=== PATIENT | female | born 1995 | race Caucasian/White ===

== ENCOUNTER 2019-07-13 18:48 | Observation (INO) | payer BC ==
[2019-07-13] MEDS ORDERED: BUPIVACAINE MPF 0.25% 30 ML VIAL. ONE (18:59)
[2019-07-13] MEDS ORDERED: ROCURONIUM 50 MG/5 ML VIAL. ONE (19:47)
[2019-07-13] MEDS ORDERED: SUCCINYLCHOLINE 200 MG/10 ML VIAL. ONE (19:47)
[2019-07-13] MEDS ORDERED: NEOSTIGMINE METHYLSULFATE 5 MG/5 ML SYRINGE. ONE (19:47)
[2019-07-13] MEDS ORDERED: fentaNYL PF VIAL 100 MCG/2 ML VIAL ONE ×2 (19:47→20:47)
[2019-07-13] MEDS ORDERED: PROPOFOL 20 ML IV ONE ×2 (19:48→19:49)
[2019-07-13] MEDS ORDERED: ONDANSETRON PF 4 MG/2 ML VIAL. ONE ×2 (19:48→19:49)
[2019-07-13] MEDS ORDERED: DEXAMETHASONE SOD PHOS 4 MG/ML VIAL ONE ×2 (19:48→19:49)
[2019-07-13] MEDS ORDERED: KETOROLAC 30 MG/ML INJ FOR OR. INJ ONE ×2 (19:48→19:49)
[2019-07-13] MEDS ORDERED: MIDAZOLAM HCL/PF 2 MG/2 ML VIAL. ONE (19:48)
[2019-07-13] MEDS ORDERED: LIDOCAINE 2% PF 5 ML VIAL. ONE ×2 (19:48→19:49)
[2019-07-13] MEDS ORDERED: GLYCOPYRROLATE 1 MG/5 ML VIAL. ONE (19:48)
--- NOTE | 2019-07-13 20:42 | PDOC1 ---
History and Physical Date of Admission Date of Admission DATE: 07/13/19 TIME: 20:37 Identification/Chief Complaint Chief Complaint abdominal pain Source Source: Chart review, Patient History of Present Illness History of Present Illness 24 y/o G2 A1 @ 8 wks gestation by LMP presented to [facility] emergency with severe abdominal pain. She was diagnosed with ruptured ectopic and acute abdomen. She was then transferred to [place], evaluated and counseled on LPSC removal of ectopic . Past Surgical History Past Surgical History: Other (ankle) Current Medications Current Medications Current Medications Succinylcholine Chloride (Anectine) 200 mg STK-MED ONCE .ROUTE ; Start 07/13/19 at 19:47; Stop 07/13/19 at 19:47; Status DC Rocuronium [place] (Zemuron) 50 mg STK-MED ONCE .ROUTE ; Start 07/13/19 at 19:47; Stop 07/13/19 at 19:47; Status DC Fentanyl Citrate (Fentanyl 2ml Vial) 100 mcg STK-MED ONCE .ROUTE ; Start 07/13/19 at 19:47; Stop 07/13/19 at 19:47; Status DC Neostigmine Methylsulfate (Neostigmine Methylsulfate) 5 mg STK-MED ONCE .ROUTE ; Start 07/13/19 at 19:47; Stop 07/13/19 at 19:48; Status DC Midazolam HCl (Versed) 2 mg STK-MED ONCE .ROUTE ; Start 07/13/19 at 19:48; Stop 07/13/19 at 19:48; Status DC Glycopyrrolate (Robinul) 1 mg STK-MED ONCE .ROUTE ; Start 07/13/19 at 19:48; Stop 07/13/19 at 19:48; Status DC Propofol 20 ml @ As Directed STK-MED ONCE IV ; Start 07/13/19 at 19:48; Stop 07/13/19 at 19:49; Status DC Ketorolac Tromethamine (Toradol For Or Only) 30 mg STK-MED ONCE INJ ; Start 07/13/19 at 19:48; Stop 07/13/19 at 19:49; Status DC Lidocaine HCl (Lidocaine Pf 2% Vial) 5 ml STK-MED ONCE .ROUTE ; Start 07/13/19 at 19:48; Stop 07/13/19 at 19:49; Status DC Ondansetron HCl (Zofran) 4 mg STK-MED ONCE .ROUTE ; Start 07/13/19 at 19:48; Stop 07/13/19 at 19:49; Status DC Dexamethasone Sodium Phosphate (Decadron) 4 mg STK-MED ONCE .ROUTE ; Start 07/13/19 at 19:48; Stop 07/13/19 at 19:49; Status DC Dexamethasone Sodium Phosphate (Decadron) 4 mg STK-MED ONCE .ROUTE ; Start 07/13/19 at 19:49; Stop 07/13/19 at 19:49; Status DC Ondansetron HCl (Zofran) 4 mg STK-MED ONCE .ROUTE ; Start 07/13/19 at 19:49; Stop 07/13/19 at 19:49; Status DC Lidocaine HCl (Lidocaine Pf 2% Vial) 5 ml STK-MED ONCE .ROUTE ; Start 07/13/19 at 19:49; Stop 07/13/19 at 19:49; Status DC Propofol 20 ml @ As Directed STK-MED ONCE IV ; Start 07/13/19 at 19:49; Stop 07/13/19 at 19:49; Status DC Ketorolac Tromethamine (Toradol For Or Only) 30 mg STK-MED ONCE INJ ; Start 07/13/19 at 19:49; Stop 07/13/19 at 19:49; Status DC Bupivacaine HCl (Sensorcaine Mpf 0.25%) 30 ml STK-MED ONCE .ROUTE Last administered on 07/13/19at 20:17; Start 07/13/19 at 18:59; Stop 07/13/19 at 19:59; Status DC Allergies Allergies: Coded Allergies: Sulfa (Sulfonamide Antibiotics) (Verified Allergy, Severe, 07/13/19) ROS General: YES: Fatigue, Malaise; No: Chills, Night Sweats, Appetite, Other PSYCHOLOGICAL ROS: YES: Anxiety; No: Behavioral Disorder, Concentration difficultie, Decreased libido, Depression, Disorientation, Hallucinations, Hostility, Irritablity, Memory difficulties, Mood Swings, Obsessive thoughts, Physical abuse, Sexual abuse, Sleep disturbances, Suicidal ideation, Other Eyes: No Blurry vision, No Decreased vision, No Double vision, No Dry eyes, No Excessive tearing, No Eye Pain, No Itchy Eyes, No Loss of vision, No Photophobia, No Scotomata, No Uses contacts, No Uses glasses, No Other HEENT: No: Heacaches, Visual Changes, Hearing change, Nasal congestion, Nasal discharge, Oral lesions, Sinus pain, Sore Throat, Epistaxis, Sneezing, Snoring, Tinnitus, Vertigo, Vocal changes, Other ALLERGY AND IMMUNOLOGY: No: Hives, Insect Bite Sensitivity, Itchy/Watery Eyes, Nasal Congestion, Post Nasal Drip, Seasonal Allergies, Other Hematological and Lymphatic: No: Bleeding Problems, Blood Clots, Blood Transfusions, Brusing, Night Sweats, Pallor, Swollen Lymph Nodes, Other ENDOCRINE: No: Breast Changes, Galactorrhea, Hair Pattern Changes, Hot Flashes, Malaise/lethargy, Mood Swings, Palpitations, Polydipsia/polyuria, Skin Changes, Temperature Intolerance, Unexpected Weight Changes, Other Breast: No New/Changing Breast Lumps, No Nipple changes, No Nipple discharge, No Other Respiratory: No: Cough, Hemoptysis, Orthopnea, Pleuritic Pain, Shortness of breath, SOB with excertion, Sputum Changes, Stridor, Tachypnea, Wheezing, Other Cardiovascular: No Chest Pain, No Palpitations, No Orthopnea, No Paroxysmal Noc. Dyspnea, No Edema, No Lt Headedness, No Other Gastrointestinal: Yes Nausea, Yes Abdominal Pain; No Vomiting, No Diarrhea, No Constipation, No Melena, No Hematochezia, No Other Skin: No Dry Skin, No Eczema, No Hair Changes, No Lumps, No Mole Changes, No Mo ttling, No Nail Changes, No Pruritus, No Rash, No Skin Lesion Changes, No Other, No Acne Physical Exam General: Alert, Cooperative, moderate distress HEENT: Atraumatic Heart: RRR Abdomen: Soft, No masses, Other (rebound tenderness) PELVIC: Examination not indicated Psych/Mental Status: Mental status NL VTE Prophylaxis Ordered VTE Prophylaxis Devices: No VTE Pharmacological Prophylaxi: No Assessment/Plan Assessment/Plan A: Ruptured ectopic P: Admit for surgical management in form of LPSC removal ectopic . DAREK LAUGHLIN Jr, MD Jul 13, 2019 20:42
--- NOTE | 2019-07-13 20:46 | PDOC ---
BRIEF OPERATIVE NOTE Date: Jul 13, 2019 Pre-Op Diagnosis Ruptured ectopic Post-Op Diagnosis Left Ruptured Ectopic Procedure Performed [facility] Left Salpingectomy Surgeon Dr. Quintero Anesthesia Type: General Blood Loss 5 ml; 600 ml blood clot in abdomen Specimens Obtained Left fallopian tube with ectopic Findings Left ruptured ectopic ; nml ovaries braxton, nml right fallopian tube; nml size uterus Complications none Operative Note see dictation DAREK QUINTERO Jr, MD Jul 13, 2019 20:46
[2019-07-13] MEDS ORDERED: IV RINGERS,LACTATED 1000ML 1,000 ML IV SCH (20:47)
[2019-07-13] MEDS: fentaNYL PF VIAL 100 MCG/2 ML VIAL IV PRN ×3 (20:51→21:28)
[2019-07-13] MEDS ORDERED: HYDROmorphone 2 MG/ML VIAL IV PRN (21:00)
[2019-07-13] MEDS ORDERED: 0.9 % SODIUM CHLORIDE 10 ML DISP.SYRIN. IV PRN (21:00)
[2019-07-13] MEDS ORDERED: MORPHINE SULFATE 2 MG/ML VIAL. IV PRN (21:00)
[2019-07-13] MEDS ORDERED: fentaNYL PF VIAL 100 MCG/2 ML VIAL IV PRN (21:00)
[2019-07-13] MEDS ORDERED: ONDANSETRON PF 4 MG/2 ML VIAL. IV PRN ×2 (21:00)
[2019-07-13] MEDS ORDERED: SIMETHICONE 80 MG TAB.CHEW PO PRN (21:00)
[2019-07-13] MEDS ORDERED: diphenhydrAMINE HCL 25 MG CAPSULE PO PRN (21:00)
[2019-07-13] MEDS ORDERED: CALCIUM CARBONATE 500 MG TAB.CHEW PO PRN (21:00)
[2019-07-13] MEDS ORDERED: diphenhydrAMINE 50 MG/ML VIAL IV PRN (21:00)
[2019-07-13] MEDS ORDERED: KETOROLAC 30 MG/ML VIAL. IV PRN (21:00)
[2019-07-13] MEDS ORDERED: DEXTROSE 50% 25 GM / 50ML DISP.SYRIN. IV PRN (21:00)
[2019-07-13] MEDS ORDERED: PROCHLORPERAZINE 10 MG/2 ML VIAL. IV PRN ×2 (21:00)
[2019-07-13] MEDS ORDERED: ZOLPIDEM 5 MG TABLET. PO PRN (21:00)
[2019-07-13 21:50] VITALS: BP 121/64
[2019-07-13 22:15] VITALS: BP 133/82
[2019-07-13] MEDS: oxyCODONE/APAP 5/325 1 TAB TABLET PO PRN (22:20)
[2019-07-13] MEDS: GABAPENTIN 300 MG CAPSULE. PO SCH (22:21)
[2019-07-13 22:30] VITALS: BP 124/68
[2019-07-13 22:45] VITALS: BP 125/74
--- NOTE | 2019-07-13 23:33 | OP ---
DATE OF SURGERY: 07/13/2019 PREOPERATIVE DIAGNOSIS: Ruptured ectopic . POSTOPERATIVE DIAGNOSIS: Left ruptured ectopic . PROCEDURE: Laparoscopic left salpingectomy. SURGEON: Coy Quintero MD ANESTHESIA: GETA. ESTIMATED BLOOD LOSS: 5 mL. There was 600 mL of blood clot in the abdomen. COMPLICATIONS: None. FINDINGS: Ruptured ectopic on the left side, normal ovaries bilaterally, normal right fallopian tube, normal size uterus. SUMMARY: A 24-year-old 2, A1 at about 8 weeks' gestation who presented to Emergency Department with severe abdominal pain. She was found to have a ruptured ectopic and was transferred from [facility] Emergency Room down to [place]. The patient was counseled on risks, benefits and expectations of laparoscopic salpingo-oophorectomy and voiced clear understanding to proceed. DESCRIPTION OF PROCEDURE: The patient was taken to surgery suite and placed in dorsal lithotomy position. She was prepped with Betadine solution for vaginal prep and ChloraPrep for abdominal prep. After adequate anesthesia, bivalve speculum was placed vaginally. Anterior lip of the cervix grasped with single tooth tenaculum. The uterine acorn manipulator was then placed. The bivalve speculum was removed. Attention was now placed on abdomen. Small transverse skin incision was made with the scalpel just below the umbilicus. The Veress needle was then placed through the infraumbilical incision site. The abdomen was allowed to insufflate up to 1-1/2 liters of CO2 gas. The Veress needle was then removed, 5 mm trocar was placed, the camera was positioned. There was a large amount of blood clot that was visualized. Two additional incisions were made in the left lower quadrant in which 5 mm and 11 mm trocars were placed. With the aid of graspers and suction vinyl hanger, most of the blood was irrigated and suctioned out. The right fallopian tube and ovary appeared normal. Left ovary appeared normal. Left fallopian tube was then isolated and removed with aid of the EnSeal device. The pedicle was then hemostatic. The ectopic was removed with the left fallopian tube using an Endobag. We then continued to suction and irrigate out the remaining blood clot in the abdomen. There was a small amount of normal saline that was left in posterior cul-de-sac. The trocars were then removed under direct visualization. The abdomen was allowed to deflate as much as possible along with mechanical manipulation. The 11 mm port site was closed at the fascial layer using 2-0 Vicryl suture in [id number] manner. The 3 skin incisions were closed at the skin level using 4-0 Vicryl suture in subcuticular manner. A 0.25% Marcaine was injected at each incision site. The uterine acorn manipulator and single tooth tenaculum were removed. The patient tolerated the procedure well and was taken to recovery room in stable condition. Sponge and needle count correct x 3. COY QUINTERO MD DR: ZULMA/jerome JOB#: [id number] / [id number]
[2019-07-14] MEDS: oxyCODONE/APAP 5/325 1 TAB TABLET PO PRN ×3 (00:09→12:21)
[2019-07-14 00:15] VITALS: BP 128/76
[2019-07-14 00:45] VITALS: BP 118/60
[2019-07-14 01:15] VITALS: BP 118/74
[2019-07-14 06:40] VITALS: BP 105/66
[2019-07-14] MEDS: GABAPENTIN 300 MG CAPSULE. PO SCH ×2 (06:45→12:21)
[2019-07-14 07:37] LABS: BASO % 0 % (0-3); EOS % 0 % (0-3); HEMATOCRIT 30.1 % (36.0-47.0); HEMOGLOBIN 10.3 g/dL (12.0-15.5); LYMPH # 0.7 x10^3/uL (1.0-4.8); LYMPH % 6 % (24-48); MEAN CORPUSCULAR HEMOGLOBIN 30 pg (25-35); MEAN CORPUSCULAR HGB CONC 34 g/dL (31-37); MEAN CORPUSCULAR VOLUME 88 fL (79-100); MONO # 0.8 x10^3/uL (0.0-1.1); MONO % 7 % (0-9); NEUT # 10.6 x10^3/uL (1.8-7.7); NEUT % 87 % (31-73); PLATELET COUNT 230 x10^3/uL (140-400); RED BLOOD COUNT 3.43 x10^6/uL (3.50-5.40); RED CELL DISTRIBUTION WIDTH 13.6 % (11.5-14.5); WHITE BLOOD COUNT 12.1 x10^3/uL (4.0-11.0)
[2019-07-14 10:05] LABS: % LYMPHS 8 % (24-48); % MONOS 2 % (0-10); % SEGS 90 % (35-66); PLT ESTIMATE ADEQUATE (ADEQUATE)
[2019-07-14 10:45] VITALS: BP 115/63
--- NOTE | 2019-07-14 12:20 | PDOC ---
SURGICAL PROGRESS NOTE Subjective Pt. feeling better. Results of surgery discussed with patient and family. Vital Signs Vital Signs Date Time Temp Pulse Resp B/P (MAP) Pulse Ox O2 Delivery O2 Flow Rate FiO2 07/14/19 10:45 98.4 75 20 115/63 (80) 96 Room Air 98.4 07/13/19 20:54 8.0 I&O Intake and Output 07/14/19 07:00 Intake Total 2010 ml Output Total 500 ml Balance 1510 ml Intake Oral 1060 ml IV Total 950 ml Output Estimated Blood Loss 500 ml # Voids 1 PATIENT HAS A MORALES: No General: Alert, Oriented X3, Cooperative HEENT: Atraumatic Lungs: Clear to auscultation Heart: Regular rate Abdomen: Soft, No tenderness, No masses Psych/Mental Status: Mental status NL Labs Laboratory Tests Test 07/14/19 07:15 White Blood Count 12.1 x10^3/uL (4.0-11.0) Red Blood Count 3.43 x10^6/uL (3.50-5.40) Hemoglobin 10.3 g/dL (12.0-15.5) Hematocrit 30.1 % (36.0-47.0) Mean Corpuscular Volume 88 fL (79-100) Mean Corpuscular Hemoglobin 30 pg (25-35) Mean Corpuscular Hemoglobin Concent 34 g/dL (31-37) Red Cell Distribution Width 13.6 % (11.5-14.5) Platelet Count 230 x10^3/uL (140-400) Neutrophils (%) (Auto) 87 % (31-73) Lymphocytes (%) (Auto) 6 % (24-48) Monocytes (%) (Auto) 7 % (0-9) Eosinophils (%) (Auto) 0 % (0-3) Basophils (%) (Auto) 0 % (0-3) Neutrophils # (Auto) 10.6 x10^3/uL (1.8-7.7) Lymphocytes # (Auto) 0.7 x10^3/uL (1.0-4.8) Monocytes # (Auto) 0.8 x10^3/uL (0.0-1.1) Eosinophils # (Auto) 0.0 x10^3/uL (0.0-0.7) Basophils # (Auto) 0.0 x10^3/uL (0.0-0.2) Segmented Neutrophils % 90 % (35-66) Lymphocytes % 8 % (24-48) Monocytes % 2 % (0-10) Platelet Estimate Adequate (ADEQUATE) Laboratory Tests Test 07/14/19 07:15 White Blood Count 12.1 x10^3/uL (4.0-11.0) Red Blood Count 3.43 x10^6/uL (3.50-5.40) Hemoglobin 10.3 g/dL (12.0-15.5) Hematocrit 30.1 % (36.0-47.0) Mean Corpuscular Volume 88 fL (79-100) Mean Corpuscular Hemoglobin 30 pg (25-35) Mean Corpuscular Hemoglobin Concent 34 g/dL (31-37) Red Cell Distribution Width 13.6 % (11.5-14.5) Platelet Count 230 x10^3/uL (140-400) Neutrophils (%) (Auto) 87 % (31-73) Lymphocytes (%) (Auto) 6 % (24-48) Monocytes (%) (Auto) 7 % (0-9) Eosinophils (%) (Auto) 0 % (0-3) Basophils (%) (Auto) 0 % (0-3) Neutrophils # (Auto) 10.6 x10^3/uL (1.8-7.7) Lymphocytes # (Auto) 0.7 x10^3/uL (1.0-4.8) Monocytes # (Auto) 0.8 x10^3/uL (0.0-1.1) Eosinophils # (Auto) 0.0 x10^3/uL (0.0-0.7) Basophils # (Auto) 0.0 x10^3/uL (0.0-0.2) Segmented Neutrophils % 90 % (35-66) Lymphocytes % 8 % (24-48) Monocytes % 2 % (0-10) Platelet Estimate Adequate (ADEQUATE) Assessment/Plan A: POD#1 s/p LPSC Left salpingectomy P: D/c home. DAREK LAUGHLIN Jr, MD Jul 14, 2019 12:20
[2019-07-14] MEDS ORDERED: OXYC1TAB15 PO (12:22)
--- NOTE | 2019-07-14 12:22 | DISCH ---
DISCHARGE INSTRUCTIONS Condition on Discharge Condition on Discharge: Stable Activity After Discharge Activity Instructions for Disc: Activity as tolerated Lifting Instructions after Dis: No heavy lifting Driving Instructions after Dis: Do not drive today Diet after Discharge Diet after Discharge: Regular Contacting the DRHeather after DC Call your doctor for: Concerns you may have Follow-Up Follow up with: Dr. Quintero in 1 week. DAREK QUINTERO Jr, MD Jul 14, 2019 12:22
--- NOTE | 2019-07-15 13:08 | PATHOLOGY ---
[facility] Accession Number: [id number] . 01 Material submitted: . fallopian tube - LEFT TUBE. Modifiers: left . 01 Clinical history: . Ectopic . 02 Diagnosis: Fallopian tube, laparoscopic left salpingectomy: - Ectopic tubal , ruptured. - Hematosalpinx. . (JPM:mml; 07/15/2019) [facility]/07/15/2019 . 02 Comment: Placental villous and tissue is focally identified within blood vessels adjacent to the fallopian tube. . (JPM:mml; 07/15/2019) . 02 Electronically signed: . Lior Douglas MD, Pathologist NPI- [id number] . 01 Gross description: . The specimen is received in formalin, labeled "Elizabeth Braden, left tube" and consists of a markedly dilated and fimbriated fallopian tube segment measuring 5.4 cm in length and ranging from 0.3-2.4 cm in diameter. The proximal aspect of the tube has a disruption with protruding spongy villous brown tissue (inked black). Sectioning reveals the dilated lumen contains a probable gestational sac and spongy villous brown tissue as well as clot. A benefits representative section is submitted in A1-A5. (SD; 07/14/2019) SYU/SYU . 02 Pathologist provided ICD-10: O00.90, N83.6 . 02 CPT . 940486 Specimen Comment: A courtesy copy of this report has been sent to Specimen Comment: [phone]. Specimen Comment: Report sent to Performed at: [address], [place], [place] [id number] MD Marco Antonio Jones MD Phone: [phone] Performed at: [address] [id number] MD Lior Douglas MD Phone: [phone]
== END 2019-07-14 13:30 | disposition home or self-care (01) ==
LOC: 3 NORTH 19:30
PROVIDERS: ADMIT Obstetrics & Gynecology; ATTEND Obstetrics & Gynecology
DX: O00.90 Unspecified ectopic pregnancy without intrauterine pregnancy (principal); Z3A.08 8 weeks gestation of pregnancy
CPT/HCPCS: 36415; 59151; 85007; 85025; 96374; A7015; G0378; G0379; J0330; J1100; J1885; J2001; J2250; J2704; J2710; J3010; J3490; J7030; Q0163; 88305; J2405

== ENCOUNTER 2020-08-08 09:21 | Emergency (ER) | payer BC ==
[~2020-08-08] VITALS: Ht 162.6 cm; Wt 54.5 kg
[~2020-08-08 09:21] MED LIST: OXYC1TAB15 PO
[2020-08-08 10:22] LABS: CREATININE 0.9 mg/dL (0.6-1.0); GFR 77.6; POTASSIUM 3.6 mmol/L (3.5-5.1)
[2020-08-08 10:26] LABS: BASO # 0.1 x10^3/uL (0.0-0.2); BASO % 1 % (0-3); EOS # 0.1 x10^3/uL (0.0-0.7); EOS % 1 % (0-3); HEMATOCRIT 39.9 % (36.0-47.0); HEMOGLOBIN 13.1 g/dL (12.0-15.5); LYMPH # 1.4 x10^3/uL (1.0-4.8); LYMPH % 14 % (24-48); MEAN CORPUSCULAR HEMOGLOBIN 27 pg (25-35); MEAN CORPUSCULAR HGB CONC 33 g/dL (31-37); MEAN CORPUSCULAR VOLUME 82 fL (79-100); MONO # 0.8 x10^3/uL (0.0-1.1); MONO % 8 % (0-9); NEUT # 7.9 x10^3/uL (1.8-7.7); NEUT % 76 % (31-73); PLATELET COUNT 260 x10^3/uL (140-400); RED BLOOD COUNT 4.84 x10^6/uL (3.50-5.40); RED CELL DISTRIBUTION WIDTH 15.9 % (11.5-14.5); WHITE BLOOD COUNT 10.4 x10^3/uL (4.0-11.0)
[2020-08-08 10:29] LABS: ALBUMIN 3.9 g/dL (3.4-5.0); ALBUMIN/GLOBULIN RATIO 1.1 (1.0-1.7); MAGNESIUM 1.8 mg/dL (1.8-2.4); TOTAL BILIRUBIN 0.7 mg/dL (0.2-1.0); TOTAL PROTEIN 7.3 g/dL (6.4-8.2)
--- NOTE | 2020-08-08 11:08 | PHYS DOC ---
Past Medical History Past Medical History: No Pertinent History Past Surgical History: Other Additional Past Surgical Histo: LT SALPINGECTOMY Smoking Status: Never Smoker Alcohol Use: None General Adult EDM: Chief Complaint: VAGINAL BLEEDING HPI: HPI: Patient is a 25 year old female who presented to ER today for evaluation of vaginal bleeding started this morning. Patient says she is about 4 weeks . Patient woke up this morning noted blood, now more than spotting. Patient denies passing any blood clot, denies any pelvic pain or any abdominal pain, no nausea vomiting, no fever. Patient has history of ruptured ectopic in July 13, 2019, she lost her left fallopian tube for that. She said at that time she was having severe pain, she was 8 weeks then. Again patient denies any pelvic pain today. Review of Systems: Review of Systems: Constitutional: Denies fever or chills. [] Eyes: Denies change in visual acuity. [] HENT: Denies nasal congestion or sore throat. [] Respiratory: Denies cough or shortness of breath. [] Cardiovascular: Denies chest pain or edema. [] GI: Denies abdominal pain, nausea, vomiting, bloody stools or diarrhea. [] : Denies dysuria. Positive for vaginal bleeding. Musculoskeletal: Denies back pain or joint pain. [] Integument: Denies rash. [] Neurologic: Denies headache, focal weakness or sensory changes. [] Endocrine: Denies polyuria or polydipsia. [] Lymphatic: Denies swollen glands. [] Psychiatric: Denies depression or anxiety. [] Heart Score: Risk Factors: Risk Factors: DM, Current or recent (<one month) smoker, HTN, HLP, family history of CAD, obesity. Risk Scores: Score 0 - 3: 2.5% MACE over next 6 weeks - Discharge Home Score 4 - 6: 20.3% MACE over next 6 weeks - Admit for Clinical Observation Score 7 - 10: 72.7% MACE over next 6 weeks - Early Invasive Strategies Allergies: Allergies: Allergies Coded Allergies Type Severity Reaction Last Updated Verified Sulfa (Sulfonamide Antibiotics) Allergy Severe 07/13/19 Yes Physical Exam: PE: Constitutional: Well developed, well nourished, no acute distress, non-toxic appearance. [] HENT: Normocephalic, atraumatic, bilateral external ears normal, oropharynx moist, no oral exudates, nose normal. [] Eyes: PERRLA, EOMI, conjunctiva normal, no discharge. [] Neck: Normal range of motion, no tenderness, supple, no stridor. [] Cardiovascular:Heart rate regular rhythm, no murmur [] Lungs & Thorax: Bilateral breath sounds clear to auscultation [] Abdomen: Bowel sounds normal, soft, no tenderness, no masses, no pulsatile masses. Pelvic exam: THERE IS DARK BLOOD IN VAGINAL VAULT, CERVIX IS CLOSED, NO ADNEXA TENDERNESS TO PALPATION. Skin: Warm, dry, no erythema, no rash. [] Back: No tenderness, no CVA tenderness. [] Extremities: No tenderness, no cyanosis, no clubbing, ROM intact, no edema. [] Neurologic: Alert and oriented X 3, normal motor function, normal sensory function, no focal deficits noted. [] Psychologic: Affect normal, judgement normal, mood normal. [] Current Patient Data: Labs: Laboratory Tests Test 08/08/20 09:55 08/08/20 10:05 White Blood Count 10.4 x10^3/uL (4.0-11.0) Red Blood Count 4.84 x10^6/uL (3.50-5.40) Hemoglobin 13.1 g/dL (12.0-15.5) Hematocrit 39.9 % (36.0-47.0) Mean Corpuscular Volume 82 fL (79-100) Mean Corpuscular Hemoglobin 27 pg (25-35) Mean Corpuscular Hemoglobin Concent 33 g/dL (31-37) Red Cell Distribution Width 15.9 % (11.5-14.5) H Platelet Count 260 x10^3/uL (140-400) Neutrophils (%) (Auto) 76 % (31-73) H Lymphocytes (%) (Auto) 14 % (24-48) L Monocytes (%) (Auto) 8 % (0-9) Eosinophils (%) (Auto) 1 % (0-3) Basophils (%) (Auto) 1 % (0-3) Neutrophils # (Auto) 7.9 x10^3/uL (1.8-7.7) H Lymphocytes # (Auto) 1.4 x10^3/uL (1.0-4.8) Monocytes # (Auto) 0.8 x10^3/uL (0.0-1.1) Eosinophils # (Auto) 0.1 x10^3/uL (0.0-0.7) Basophils # (Auto) 0.1 x10^3/uL (0.0-0.2) Maternal Serum HCG Beta Subunit 9 mIU/mL (0-5) H Sodium Level 139 mmol/L (136-145) Potassium Level 3.6 mmol/L (3.5-5.1) Chloride Level 105 mmol/L (98-107) Carbon Dioxide Level 22 mmol/L (21-32) Anion Gap 12 (6-14) Blood Urea Nitrogen 13 mg/dL (7-20) Creatinine 0.9 mg/dL (0.6-1.0) Estimated GFR (Cockcroft-Gault) 77.6 BUN/Creatinine Ratio 14 (6-20) Glucose Level 94 mg/dL (70-99) Calcium Level 9.0 mg/dL (8.5-10.1) Magnesium Level 1.8 mg/dL (1.8-2.4) Total Bilirubin 0.7 mg/dL (0.2-1.0) Aspartate Amino Transferase (AST) 15 U/L (15-37) Alanine Aminotransferase (ALT) 15 U/L (14-59) Alkaline Phosphatase 61 U/L (46-116) Total Protein 7.3 g/dL (6.4-8.2) Albumin 3.9 g/dL (3.4-5.0) Albumin/Globulin Ratio 1.1 (1.0-1.7) POC Urine HCG, Qualitative Borderline hcg level Laboratory Tests 08/08/20 09:55 Laboratory Tests 08/08/20 09:55 Vital Signs: Vital Signs Date Time Temp Pulse Resp B/P (MAP) Pulse Ox O2 Delivery O2 Flow Rate FiO2 08/08/20 09:34 98.9 65 16 132/73 (92) 99 Room Air 98.9 EKG: EKG: [] Radiology/Procedures: Radiology/Procedures: [][facility] [address] [place] [address] IMAGING REPORT Signed PATIENT: SAMSON RICHTERACCOUNT: [id number] : 1995 LOCATION: ER AGE: 25 SEX: F EXAM STATUS: REG ER ORD. PHYSICIAN: CHAGO BOWEN DO REASON: , VAGINAL BLEEDING PROCEDURE: OB TRANSVAG Obstetrical ultrasound 08/08/2020. Reason for exam: Early with vaginal bleeding. Transvaginal scanning was performed. This shows normal size uterus measuring 7.1 x 3.2 cm. The endometrial stripe is mildly thickened at 9 mm. No gestational sac is seen. There is a small amount of free fluid in the cul-de-sac. Both ovaries are shown and are normal in size. The right ovary contains an avascular region measuring about 1.7 cm probably representing corpus luteum. There is blood flow in the ovary. The left ovary appears normal and has internal blood flow. No adnexal mass is seen. IMPRESSION: No visible . Mild free fluid. Findings are nonspecific. Based on last menstrual period date, it may be too early to visualize a . Follow-up serial serum beta hCG and ultrasound may be useful. Electronically signed by: Coy Lundy Jr., MD (08/08/2020 11:46 AM) [facility] DICTATED and SIGNED BY: COY LUNDY Jr, MD DATE: 08/08/20 1146 Course & Med Decision Making: Course & Med Decision Making Pertinent Labs and Imaging studies reviewed. (See chart for details) Patient is a 25-year-old female who is , presented with vaginal bleeding, she had no abdominal pain, pelvic ultrasound was inconclusive. Her hCGis level only 9, unlikely to have ectopic because she has no pelvic pain, however she will need to follow-up with her [employer] doctor in 48 hours to have hCG level rechecked. Patient is amenable to plan of care Dragon Disclaimer: Dragon Disclaimer: This electronic medical record was generated, in whole or in part, using a voice recognition dictation system. Departure Departure Impression: Primary Impression: Threatened in first trimester Disposition: 01 HOME, SELF-CARE Condition: STABLE Referrals: NO PCP (PCP) COY LAUGHLIN Jr, MD please follow up with your [employer] doctor in 2 days for repeat HCG level. it is 9 today. Patient Instructions: Threatened Miscarriage Additional Instructions: Thank you for visiting our Emergency Department. We appreciate you trusting us with your care. If any additional problems come up don't hesitate to return to visit us. Please follow up with your primary care provider so they can plan additional care if needed and know about the problem that you had. If symptoms worsen come back to the Emergency Department. Any concerning symptoms that start such as chest pain, shortness of air, weakness or numbness on one side of the body, running high fevers or any other concerning symptoms return to the ER. Justicifation of Admission Dx: Justifications for Admission: Justification of Admission Dx: N/A CHAGO BOWEN DO Aug 08, 2020 11:07
[2020-08-08 11:09] LABS: PREG TEST PT QUAL POSITIVE (NEG)
[2020-08-08 11:31] LABS: BILIRUBIN,URINE NEGATIVE (NEG); CLARITY,URINE CLEAR; COLOR,URINE YELLOW; NITRITE,URINE NEGATIVE (NEG); PH,URINE 5.5 (<5.0-8.0); PROTEIN,URINE NEGATIVE (NEG-TRACE); UROBILINOGEN,URINE 0.2 mg/dL (0.2 mg/dL)
[2020-08-08 11:49] LABS: BACTERIA,URINE FEW /HPF (0-FEW); SQUAMOUS EPITHELIAL CELL,UR MOD /LPF; WBC,URINE 0 /HPF (0-4)
--- NOTE | 2020-08-08 11:49 | RAD ---
Obstetrical ultrasound 08/08/2020. Reason for exam: Early with vaginal bleeding. Transvaginal scanning was performed. This shows normal size uterus measuring 7.1 x 3.2 cm. The endometrial stripe is mildly thickened at 9 mm. No gestational sac is seen. There is a small amount of free fluid in the cul-de-sac. Both ovaries are shown and are normal in size. The right ovary contains an avascular region measuring about 1.7 cm probably representing corpus luteum. There is blood flow in the ovary. The left ovary appears normal and has internal blood flow. No adnexal mass is seen. IMPRESSION: No visible . Mild free fluid. Findings are nonspecific. Based on last menstrual period date, it may be too early to visualize a . Follow-up serial serum beta hCG and ultrasound may be useful. Electronically signed by: Coy Lundy Jr., MD (08/08/2020 11:46 AM) [facility]
[2020-08-08 13:06] VITALS: BP 145/101
== END 2020-08-08 13:11 | disposition home or self-care (01) ==
LOC: ER 09:21
DX: Z98.890 Other specified postprocedural states (principal); Z88.2 Allergy status to sulfonamides; Z3A.01 Less than 8 weeks gestation of pregnancy
CPT/HCPCS: 36415; 76817; 80053; 81001; 81025; 83735; 84702; 84703; 85025; 86850; 86900; 86901; 99285; J2791